=== PATIENT | male | born 1950 | race Caucasian/White ===

== ENCOUNTER 2019-04-02 16:23 | Inpatient (IN) | payer MEDICARE, SELFPAY ==
[~2019-04-02 16:23] MED LIST: Iopamidol-370 76% 500 ML 1 ML ONE
[2019-04-02] MEDS ORDERED: Promethazine HCl 25 MG/ML VIAL ONE (16:35)
[2019-04-02 16:39] LABS: #Basophils 0.1 thou/uL (0.0-0.2); #Eosinphils 0.1 thou/uL (0.0-0.7); #Lymphocytes 2.8 thou/uL (1.20-3.40); #Monocytes 0.6 thou/uL (0.11-0.59); #Neutrophils 6.7 thou/uL (1.40-6.50); %Basophils 1.1 % (0.0-1.0); %Eosinophils 1.2 % (0.0-10.0); %Neutrophils 64.6 % (42.0-75.0); Mean Corpuscular HGB CONC 33.7 g/dL (32.0-36.0); Mean Corpuscular Hemoglobin 31.9 pg (27.0-31.0); Mean Corpuscular Volume 94.7 fL (78.0-98.0); Mean Platelet Volume 9.8 fL (7.4-10.4); Platelet Count 229 thou/uL (130-400); White Blood Cell (WBC) Count 10.4 thou/uL (4.8-10.8)
[2019-04-02 16:45] LABS: INR-International Normal Ratio 1.1; PTT 25.4 SEC (22.9-36.1); Prothrombin Time 13.8 SEC (12.0-14.7)
[2019-04-02 17:00] LABS: ALT (SGPT) 36 U/L (8-55); AST (SGOT) 43 U/L (5-34); Albumin 3.8 g/dL (3.4-4.8); Alkaline Phosphatase 92 U/L (40-110); Anion Gap 12 mmol/L (10-20); BUN (Urea Nitrogen) 15 mg/dL (8.4-25.7); Bilirubin, Total 0.3 mg/dL (0.2-1.2); Calc. Creatinine Clearance 0 mL/min (70-130); Calcium 8.9 mg/dL (7.8-10.44); Carbon Dioxide 24 mmol/L (23-31); Chloride 103 mmol/L (98-107); Estimated GFR-MDRD 66; Globulin 3.3 g/dL (2.4-3.5); Glucose 334 mg/dL (80-115); Potassium 3.8 mmol/L (3.5-5.1); Protein, Total 7.1 g/dL (5.8-8.1); Sodium 135 mmol/L (136-145)
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
[2019-04-02] MEDS ORDERED: Ondansetron PF 4 MG/2 ML Vial ONE (17:17)
[2019-04-02] MEDS ORDERED: Ketorolac Tromethamine 30 MG/ML VIAL ONE (17:17)
[2019-04-02] MEDS ORDERED: Adacel (T-DAP) 0.5 ML SYRINGE ONE (17:17)
[2019-04-02 17:33] LABS: Acetaminophen Less than 6.0 mcg/mL (10.0-30.0); Alcohol Less than 10 mg/dL (Less than 10); Salicylate Less than 8.0 mg/dL (15.0-30.0)
[2019-04-02 17:36] LABS: Bacteria/HPF None Seen HPF (None Seen); Bilirubin Negative (Negative); Blood, Urine Trace (Negative); Clarity Clear (Clear); Glucose, Urine (Dipstick) Greater than 1000 mg/dL (Negative); Leukocyte Negative Leu/uL (Negative); Nitrite Negative (Negative); Protein, Urine (Dipstick) Negative (Neg-Trace); Squamous Epithelial None Seen HPF (0-3); Urobilinogen Normal mg/dL (Less than 2); WBC/HPF 0-3 HPF (0-3)
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
[2019-04-02] MEDS ORDERED: Morphine 2 MG/ML SYRINGE SLOW IVP PRN (18:51)
[2019-04-02] MEDS ORDERED: Ondansetron PF 4 MG/2 ML Vial IVP PRN (18:51)
[2019-04-02] MEDS ORDERED: Ondansetron ODT 4 MG TAB PO PRN (18:51)
[2019-04-02] MEDS ORDERED: Dextrose 5% in Water 1,000 ML IV PRN (18:51)
[2019-04-02] MEDS ORDERED: hydrALAZINE 20 MG/ML VIAL SLOW IVP PRN (18:51)
[2019-04-02] MEDS ORDERED: Dextrose 50% Abboject 50 ML SYRINGE SLOW IVP PRN (18:51)
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
[2019-04-02 21:57] VITALS: BMI 21.1
[2019-04-02 22:10] LABS: Hemoglobin 14.3 g/dL (14.0-18.0)
[2019-04-02] MEDS: Sodium Chloride 0.9% 1,000 ML IV SCH (22:45)
[2019-04-02] MEDS: Famotidine/PF 20 mg/2ml Vial SLOW IVP SCH (23:39)
[2019-04-02] MEDS: HumaLOG 300 UNITS/3 ML VIAL SC PRN (23:39)
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
[2019-04-03 05:21] LABS: #Eosinphils 0.1 thou/uL (0.0-0.7); #Lymphocytes 1.9 thou/uL (1.20-3.40); #Monocytes 0.6 thou/uL (0.11-0.59); #Neutrophils 7.8 thou/uL (1.40-6.50); %Basophils 0.1 % (0.0-1.0); %Eosinophils 1.1 % (0.0-10.0); %Lymphocytes 18.1 % (21.0-51.0); %Monocytes 5.8 % (0.0-10.0); Hemoglobin 12.8 g/dL (14.0-18.0); Mean Corpuscular HGB CONC 33.6 g/dL (32.0-36.0); Mean Corpuscular Hemoglobin 31.6 pg (27.0-31.0); Mean Corpuscular Volume 94.2 fL (78.0-98.0); Mean Platelet Volume 9.5 fL (7.4-10.4); Platelet Count 180 thou/uL (130-400); RBC Distribution Width 11.9 % (11.5-14.5); Red Blood Cell (RBC) Count 4.06 mill/uL (4.70-6.10); White Blood Cell (WBC) Count 10.3 thou/uL (4.8-10.8)
[2019-04-03 05:40] LABS: Anion Gap 8 mmol/L (10-20); BUN (Urea Nitrogen) 13 mg/dL (8.4-25.7); Calc. Creatinine Clearance 73 mL/min (70-130); Calcium 8.5 mg/dL (7.8-10.44); Carbon Dioxide 28 mmol/L (23-31); Chloride 107 mmol/L (98-107); Estimated GFR-MDRD 76; Glucose 157 mg/dL (80-115); Potassium 3.7 mmol/L (3.5-5.1); Sodium 139 mmol/L (136-145)
[2019-04-03] MEDS: Sodium Chloride 0.9% 1,000 ML IV SCH (06:29)
[2019-04-03] MEDS: HumaLOG 300 UNITS/3 ML VIAL SC PRN ×3 (06:29→21:23)
[2019-04-03] MEDS ORDERED: Cyclobenzaprine 10 MG TAB PO PRN (07:54)
[2019-04-03] MEDS ORDERED: traMADol HCl 50 MG TAB PO PRN ×2 (07:54)
[2019-04-03] MEDS: Gabapentin 100 MG CAP PO SCH ×3 (08:33→21:22)
[2019-04-03] MEDS: Senokot S 8.6-50 MG TAB PO SCH ×2 (08:33→21:22)
[2019-04-03] MEDS: Acetaminophen 500 MG TAB PO SCH ×3 (08:33→21:21)
[2019-04-03] MEDS: Polyethylene Glycol 3350 17 GM Packet PO SCH (08:34)
[2019-04-03] MEDS: Famotidine/PF 20 mg/2ml Vial SLOW IVP SCH (08:34)
[2019-04-03] MEDS: Famotidine 20 MG TAB PO SCH ×2 (09:45→21:23)
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
[2019-04-03] MEDS: Lisinopril 5 MG TAB PO SCH (10:47)
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
[2019-04-03] MEDS: Ibuprofen 600 MG TAB PO SCH ×2 (15:01→21:22)
[2019-04-03] MEDS ORDERED: FLU VACC TS2019-20(65YR UP)/PF 180 MCG/0.5 ML SYRINGE IM ONE (21:00)
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
[2019-04-04] MEDS: Acetaminophen 500 MG TAB PO SCH ×2 (02:08→08:56)
[2019-04-04] MEDS: Ibuprofen 600 MG TAB PO SCH (05:16)
[2019-04-04] MEDS: HumaLOG 300 UNITS/3 ML VIAL SC PRN (05:16)
[2019-04-04] MEDS: Polyethylene Glycol 3350 17 GM Packet PO SCH (08:54)
[2019-04-04] MEDS: Famotidine 20 MG TAB PO SCH (08:54)
[2019-04-04] MEDS: Gabapentin 100 MG CAP PO SCH (08:56)
[2019-04-04] MEDS: Lisinopril 5 MG TAB PO SCH (08:56)
[2019-04-04] MEDS: Senokot S 8.6-50 MG TAB PO SCH (08:56)
[2019-04-04 11:40] VITALS: BP 150/78; TEMP 98
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
== END 2019-04-04 14:01 | disposition home or self-care (01) | DRG 565 ==
LOC: ERS 16:23 → SURG B 21:40
PROVIDERS: ADMIT Psychiatry & Neurology Neurology; ATTEND Psychiatry & Neurology Neurology
DX: S22.20XA Unspecified fracture of sternum, initial encounter for closed fracture (principal); S32.019A Unspecified fracture of first lumbar vertebra, initial encounter for closed fracture; S36.892A Contusion of other intra-abdominal organs, initial encounter; S32.058A Other fracture of fifth lumbar vertebra, initial encounter for closed fracture; C61 Malignant neoplasm of prostate; E11.65 Type 2 diabetes mellitus with hyperglycemia; Z79.4 Long term (current) use of insulin; Y92.488 Other paved roadways as the place of occurrence of the external cause; V89.2XXA Person injured in unspecified motor-vehicle accident, traffic, initial encounter
CPT/HCPCS: 36415; 36416; 70450; 71045; 71260; 72125; 74177; 80048; 80053; 80307; 81003; 81015; 85025; 85610; 85730; 86850; 86900; 86901; 90715; 94640; G0390; J1885; J2270; J2405; J2550; J7620; Q9967; S0028